=== PATIENT | male | born 1980 | race American Indian/Alaskan Native ===

== ENCOUNTER 2017-01-17 13:29 | Emergency (ER) | payer OTHER ==
[~2017-01-17] VITALS: Ht 167.6 cm; Wt 83.0 kg
[2017-01-17 13:35] VITALS: TEMP 36.8; Ht 167.6 cm; Wt 83.0 kg
--- NOTE | 2017-01-17 14:23 | DIAGNOSTIC IMAGING REPORT ---
RIGHT ANKLE MIN 3 VIEWS ROUTINE CLINICAL HISTORY: Right ankle pain following injury. COMPARISON: None FINDINGS: Alignment of the right ankle is anatomic. Talar dome is intact. No acute fracture is identified. A 4 mm ossicle along the medial malleolus suggests old injury. There is minimal posterior calcaneal spurring. IMPRESSION: 1. No acute fracture or dislocation of the right ankle. 2. 4 mm corticated ossicle along the medial malleolus which favors old injury. Electronically signed by: Saulo Rosado M.D. 01/17/2017 2:22 PM Dictated Date/Time: 01/17/2017 2:21 PM
--- NOTE | 2017-01-17 14:28 | DIAGNOSTIC IMAGING REPORT ---
RIGHT FOOT MIN 3 VIEWS ROUTINE CLINICAL HISTORY: RIGHT, EVAL FX Right trauma. Pain. COMPARISON: None. DISCUSSION: Moderate degenerative change first metatarsophalangeal joint. A small defect of the articular services of the head distal aspect first metatarsal suggesting subchondral cyst formation. All remaining osseous structures are unremarkable. Alignment is anatomic. There is no evidence for soft tissue swelling. IMPRESSION: Moderate degenerative change first metatarsophalangeal joint with a small central osteochondral defect of the distal first metatarsal centrally Electronically signed by: Francisco Yu M.D. 01/17/2017 2:26 PM Dictated Date/Time: 01/17/2017 2:24 PM
--- NOTE | 2017-01-17 14:38 | EMERGENCY ROOM VISIT NOTE ---
ED Visit Note First contact with patient: 13:44 CHIEF COMPLAINT: Right ankle injury yesterday HISTORY OF PRESENT ILLNESS: Patient is a 36-year-old male brought to the emergency department by corrections officers from [facility] for evaluation of a right lower leg injury that he sustained yesterday. He rolled the leg while playing soccer in the yard. He complains of pain in the lateral aspect of the right ankle leg. He has been unable to bear weight due to discomfort. He was medicated with IM Nubain at the group home prior to transfer. He rates his pain an 8/10. REVIEW OF SYSTEMS: Review of systems as per HPI. All other systems reviewed were negative. At least 6 systems reviewed. PMH: Patient is reportedly healthy without chronic medical problems. No surgeries. SOCIAL HISTORY: Patient is presently incarcerated. Smoker. PHYSICAL EXAM: Vital Signs: Reviewed Nurse's notes. MENTAL STATUS: Alert, oriented, and cooperative. The right ankle is slightly swollen and tender over the lateral aspect but the skin is intact and there is no ligamentous instability. There is slight pain over the proximal 5th metatarsal. No pain over the proximal fibular head or over the mid shaft of the fibula laterally. Lisfranc joint is negative. There is no deformity. The foot and toes are warm and well-perfused. Sensation to pain and light touch is intact. EMERGENCY DEPARTMENT COURSE: X-ray of the right foot and ankle reveals no fracture, only the soft tissue swelling. A compression sleeve and gel splint were applied to the ankle under my direction and the position was satisfactory. Crutches were advised, this will need to be dispensed by the [facility] within the patient returns to the corrections facility. Differential diagnosis include foot verses ankle sprain/fracture, contusion, dislocation. RIGHT ANKLE MIN 3 VIEWS ROUTINE CLINICAL HISTORY: Right ankle pain following injury. COMPARISON: None FINDINGS: Alignment of the right ankle is anatomic. Talar dome is intact. No acute fracture is identified. A 4 mm ossicle along the medial malleolus suggests old injury. There is minimal posterior calcaneal spurring. IMPRESSION: 1. No acute fracture or dislocation of the right ankle. 2. 4 mm corticated ossicle along the medial malleolus which favors old injury. RIGHT FOOT MIN 3 VIEWS ROUTINE CLINICAL HISTORY: RIGHT, EVAL FX Right trauma. Pain. COMPARISON: None. DISCUSSION: Moderate degenerative change first metatarsophalangeal joint. A small defect of the articular services of the head distal aspect first metatarsal suggesting subchondral cyst formation. All remaining osseous structures are unremarkable. Alignment is anatomic. There is no evidence for soft tissue swelling. IMPRESSION: Moderate degenerative change first metatarsophalangeal joint with a small central osteochondral defect of the distal first metatarsal centrally Current/Historical Medications No Active Prescriptions or Reported Meds Allergies Coded Allergies: No Known Allergies (Unverified , 01/17/17) Vital Signs Date Time Temp Pulse Resp B/P (MAP) Pulse Ox O2 Delivery O2 Flow Rate FiO2 01/17/17 14:47 55 16 133/68 98 01/17/17 13:35 36.8 18 18 130/79 97 Room Air Departure Information Impression Primary Impression: Right ankle sprain Prescriptions No Active Prescriptions or Reported Meds Referrals Herb AUGUSTE (PCP) Patient Instructions [facility] Additional Instructions Ibuprofen(Motrin, Advil) may be used for fever or pain. Use 600mg every six hours as needed. Take with food. Avoid using more than 2400mg in a 24 hour period. Do not use 2400mg per day for more than three consecutive days without physician direction. Prolonged inappropriate use can lead to stomach upset or ulcers. This medication can be taken if you need to drive, work, or perform activities which may be dangerous when taking narcotic pain medication. (AND/OR) Acetaminophen(Tylenol) may be used for fever or pain. Use 1000mg every six hours as needed. Avoid using more than 3000mg in a 24 hour period. This medication can be taken if you need to drive, work, or perform activities which may be dangerous when taking narcotic pain medication. Ice compresses for 20 minutes at a time four times daily for 2-3 days. Use the gel splint and crutches as instructed. When able to bear full weight on the right leg with no pain may discontinue crutches. Continue gel splint for 2-3 weeks until pain and swelling have improved. May resume normal activity as your symptoms allow. Rest and elevate your injury. Continue current medications. Return to the ER immediately for any numbness, tingling, severe pain, extreme swelling in the extremity or as needed. Followup with your family doctor or orthopedic surgery if no improvement in 5-7 days.
[2017-01-17 14:47] VITALS: BP 133/68; PULSE 55; O2SAT 98
== END 2017-01-17 14:50 | disposition home or self-care (01) ==
LOC: C.EDB 13:32 → C.EDD 14:50
DX: S93.401A Sprain of unspecified ligament of right ankle, initial encounter (principal); X50.1XXA Overexertion from prolonged static or awkward postures, initial encounter; Y92.147 Courtyard of prison as the place of occurrence of the external cause; Y93.66 Activity, soccer; F17.210 Nicotine dependence, cigarettes, uncomplicated